=== PATIENT | male | born 1995 | race African-American/Black ===

== ENCOUNTER 2019-04-28 20:16 | Emergency (ER) | payer SELFPAY | END 2019-04-28 21:22 | disposition home or self-care (01) | LOC: ERS 20:16 | DX: K02.9 Dental caries, unspecified (principal); F17.210 Nicotine dependence, cigarettes, uncomplicated | CPT/HCPCS: 99282 ==

== ENCOUNTER 2020-06-14 12:58 | Emergency (ER) | END 2020-06-14 13:31 | disposition home or self-care (01) | LOC: ERS 12:58 | DX: K02.9 Dental caries, unspecified (principal); F17.210 Nicotine dependence, cigarettes, uncomplicated | CPT/HCPCS: 99283 ==

== ENCOUNTER 2020-06-15 12:32 | Emergency (ER) | payer SELFPAY | END 2020-06-15 14:01 | disposition home or self-care (01) | LOC: ERS 12:32 | DX: K04.7 Periapical abscess without sinus (principal); Z79.899 Other long term (current) drug therapy | CPT/HCPCS: 99283 ==

== ENCOUNTER 2020-10-03 15:06 | Emergency (ER) | payer SELFPAY ==
[2020-10-03] MEDS ORDERED: Acetaminophen 325 MG TAB ONE (15:59)
[2020-10-03] MEDS ORDERED: Acetaminophen 500 MG TAB ONE (15:59)
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
== END 2020-10-03 17:13 | disposition home or self-care (01) ==
LOC: ERS 15:06
DX: S00.81XA Abrasion of other part of head, initial encounter (principal); V49.9XXA Car occupant (driver) (passenger) injured in unspecified traffic accident, initial encounter; Z87.891 Personal history of nicotine dependence
CPT/HCPCS: 70450

== ENCOUNTER 2021-01-22 12:21 | Emergency (ER) | payer SELFPAY ==
[2021-01-22] MEDS ORDERED: Ketorolac Tromethamine 30 MG/ML VIAL ONE (13:02)
== END 2021-01-22 13:21 | disposition home or self-care (01) ==
LOC: ERS 12:21
DX: M54.5 Low back pain (principal); Z87.891 Personal history of nicotine dependence
CPT/HCPCS: 96372; 99283; J1885

== ENCOUNTER 2021-03-21 13:45 | Emergency (ER) | payer SELFPAY | END 2021-03-21 16:08 | disposition home or self-care (01) | LOC: ERS 13:45 | DX: M54.5 Low back pain (principal) | CPT/HCPCS: 99283 ==

== ENCOUNTER 2021-05-22 18:55 | Emergency (ER) | payer SELFPAY ==
[2021-05-22] MEDS ORDERED: Ketorolac Tromethamine 30 MG/ML VIAL ONE (20:36)
== END 2021-05-22 20:48 | disposition home or self-care (01) ==
LOC: ERS 18:55
DX: M54.5 Low back pain (principal); R51.9 Headache, unspecified
CPT/HCPCS: 96372; 99283; J1885

== ENCOUNTER 2023-07-31 21:10 | Emergency (ER) | payer BC, SELFPAY ==
[2023-07-31 22:06] LABS: SARS-CoV-2 NAA Rapid Test Not Detected (NotDetected)
== END 2023-07-31 22:37 | disposition home or self-care (01) ==
LOC: ERS 21:10
DX: J06.9 Acute upper respiratory infection, unspecified (principal); F17.210 Nicotine dependence, cigarettes, uncomplicated; Z20.822 Contact with and (suspected) exposure to COVID-19
CPT/HCPCS: 99283; U0002

== ENCOUNTER 2025-09-16 18:28 | Emergency (ER) | payer BC, SELFPAY ==
[2025-09-16] MEDS ORDERED: Amoxicillin/Potassium Clav 875 MG TAB ONE (18:55)
[2025-09-16] MEDS ORDERED: Ibuprofen 800 MG TAB ONE (18:55)
== END 2025-09-16 19:04 | disposition home or self-care (01) ==
LOC: ERS 18:28
DX: K08.89 Other specified disorders of teeth and supporting structures (principal); K02.9 Dental caries, unspecified; F17.210 Nicotine dependence, cigarettes, uncomplicated; Z75.3 Unavailability and inaccessibility of health-care facilities
CPT/HCPCS: 99282